=== PATIENT | female | born 1980 | race Caucasian/White ===

== ENCOUNTER 2016-11-28 12:26 | Emergency (ER) | payer MEDICAID ==
[~2016-11-28] VITALS: Ht 170.2 cm; Wt 90.6 kg
[~2016-11-28 12:26] MED LIST: DOCU-131 PO; HYDR1TAB12 PO; IBUP-1222 PO; OXYC-307 PO
[2016-11-28 12:28] VITALS: BP 108/84
[2016-11-28] MEDS ORDERED: HYDROcodone/APAP 5/325 TABLET ONE (12:57)
[2016-11-28] MEDS ORDERED: KETOROLAC 30 MG/1 ML ONE (12:58)
[2016-11-28] MEDS ORDERED: HYDROcodone/APAP 5/325 TABLET PO PRN (13:00)
[2016-11-28] MEDS ORDERED: KETOROLAC 30 MG/1 ML IM ONE (13:00)
== END 2016-11-28 14:04 | disposition home or self-care (01) ==
LOC: ED 12:50
DX: S83.422A Sprain of lateral collateral ligament of left knee, initial encounter (principal); Z90.710 Acquired absence of both cervix and uterus; W01.0XXA Fall on same level from slipping, tripping and stumbling without subsequent striking against object, initial encounter; Y93.11 Activity, swimming; Y92.89 Other specified places as the place of occurrence of the external cause; Y99.8 Other external cause status
CPT/HCPCS: 29505; 73564; 96372; 99284; J1885

== ENCOUNTER 2017-03-21 12:37 | Emergency (ER) | payer MEDICAID ==
[~2017-03-21] VITALS: Ht 170.2 cm; Wt 90.6 kg
[2017-03-21 13:06] VITALS: BP 118/84
[2017-03-21] MEDS ORDERED: SODIUM CHLORIDE 0.9% 1,000ML IVBOLUS ONE (13:30)
[2017-03-21] MEDS ORDERED: SODIUM CHLORIDE FLUSH 10ML SYR IVF ONE (13:30)
[2017-03-21 13:36] LABS: BASOPHILS # (AUTO) 0.06 x10^3/uL (0-0.1); BASOPHILS % (AUTO) 1 % (0-1); EOSINOPHILS # (AUTO) 0.12 x10^3/uL (0-0.4); EOSINOPHILS % (AUTO) 1 % (1-7); LYMPHOCYTES # (AUTO) 2.65 x10^3/uL (1-3.4); LYMPHOCYTES % (AUTO) 25 % (22-44); MD NO; MEAN CORPUSCULAR HEMOGLOBIN 31.8 pg (27.0-34.8); MEAN CORPUSCULAR HGB CONC 33.8 g/dL (32.4-35.8); MEAN CORPUSCULAR VOLUME 93.9 fL (80-100); MEAN PLATELET VOLUME 8.4 fL (7.4-10.4); MONOCYTES # (AUTO) 0.69 x10^3/uL (0.2-0.8); MONOCYTES % (AUTO) 6 % (2-9); NEUTROPHILS # (AUTO) 7.22 x10^3/uL (1.8-6.8); NEUTROPHILS % (AUTO) 67 % (42-75); PLATELET COUNT 246 x10^3/uL (130-400); RED BLOOD COUNT 4.89 x10^6/uL (3.82-5.3); RED CELL DISTRIBUTION WIDTH 13.5 % (9.6-15.2)
[2017-03-21 13:47] LABS: ANION GAP 6 mmol/L (5-15); CALCIUM 8.6 mg/dL (8.5-10.1); CHLORIDE 107 mmol/L (98-107); CREATININE 0.77 mg/dL (0.55-1.02)
[2017-03-21 13:48] LABS: ALANINE AMINOTRANSFERASE 36 U/L (12-78); ALBUMIN 3.9 g/dL (3.4-5.0)
[2017-03-21 13:52] LABS: ALKALINE PHOSPHATASE 63 U/L (45-117); BILIRUBIN,TOTAL 0.5 mg/dL (0.2-1.0); TOTAL PROTEIN 7.5 g/dL (6.4-8.2); TROPONIN I < 0.015 ng/mL (0.000-0.045)
== END 2017-03-21 15:48 | disposition home or self-care (01) ==
LOC: ED 15:40
DX: R55 Syncope and collapse (principal)
CPT/HCPCS: 36415; 70450; 71045; 80053; 84484; 84703; 85025; 93005; 99285

== ENCOUNTER 2020-02-19 15:49 | Emergency (ER) | payer MEDICAID ==
[~2020-02-19] VITALS: Ht 170.2 cm; Wt 93.0 kg
[~2020-02-19 15:49] MED LIST changes: -HYDR1TAB12 PO; +HYDR1TAB13 PO
--- NOTE | 2020-02-19 16:37 | NUR ---
PT C/O NEW LOSS OF TASTE/SMELL STARTING TODAY. EXPOSED TO COVID RECENTLY. PT STATES IT FEELS LIKE SHE'S DROWNING. PT SPEAKING IN FULL SENTENCES. OXYGEN 97% RA. PT CONNECTED TO MONITORING. CALL LIGHT IN REACH. WARM BLANKETS PROVIDED.
[2020-02-19] MEDS ORDERED: IBUPROFEN 600 MG TABLET ONE (16:42)
[2020-02-19] MEDS ORDERED: IBUPROFEN 200 MG TABLET ONE (16:42)
[2020-02-19] MEDS ORDERED: ACETAMINOPHEN 500 MG TABLET ONE (16:42)
--- NOTE | 2020-02-19 17:03 | NUR ---
PIV PLACED. IVF RUNNING. MEDS ADMIN PER APR. PT TEXTING ON PHONE.
[2020-02-19] MEDS ORDERED: ACETAMINOPHEN 500 MG TABLET PO ONE (17:30)
[2020-02-19] MEDS ORDERED: SODIUM CHLORIDE FLUSH 10ML SYR IVF ONE (17:30)
[2020-02-19] MEDS ORDERED: SODIUM CHLORIDE 0.9% 1,000ML IVBOLUS ONE (17:30)
[2020-02-19] MEDS ORDERED: IBUPROFEN 600 MG TABLET PO ONE (17:30)
[2020-02-19 17:50] VITALS: BP 129/74
--- NOTE | 2020-02-19 17:51 | NUR ---
Break RN: patient resting in [facility] with no complaints/needs. Patient receiving fluids then patient [facility].
== END 2020-02-19 18:37 | disposition home or self-care (01) ==
LOC: ED 16:43
DX: R19.7 Diarrhea, unspecified (principal); Z20.828 Contact with and (suspected) exposure to other viral communicable diseases; R00.0 Tachycardia, unspecified; R94.31 Abnormal electrocardiogram [ECG] [EKG]; Z90.710 Acquired absence of both cervix and uterus
CPT/HCPCS: 71045; 87635; 93005; 99285; J7030; 99284